=== PATIENT | male | born 1995 | race Caucasian/White ===

== ENCOUNTER 2021-12-05 07:51 | Emergency (ER) | payer OTHER ==
[~2021-12-05] VITALS: Ht 172.7 cm; Wt 100.0 kg
[2021-12-05 10:07] VITALS: BP 135/76
== END 2021-12-05 10:06 | disposition home or self-care (01) ==
LOC: M ED 07:51
DX: S60.131A Contusion of right middle finger with damage to nail, initial encounter (principal); W23.0XXA Caught, crushed, jammed, or pinched between moving objects, initial encounter; Y92.524 Gas station as the place of occurrence of the external cause; Y93.9 Activity, unspecified; Y99.9 Unspecified external cause status